=== PATIENT | male | born 1995 | race Two or more races ===

== ENCOUNTER 2020-10-17 15:28 | Emergency (ER) | payer OTHER ==
[~2020-10-17] VITALS: Ht 182.9 cm; Wt 113.4 kg
--- NOTE | 2020-10-17 16:53 | Emergency Room Report ---
History of Present Illness General Chief Complaint: Lower Extremity Injury Source: Patient Present Illness HPI 25-year-old male presents to the emergency department complaining of localized 8 out of 10 severity pain to the lateral aspect of the right foot since yesterday. Patient reports he was playing with his daughter and when he took a step he felt and heard a crack and has been unable to bear weight ever since. Patient reports he has to walk on his heel. Patient reports some mild swelling he reports tenderness palpation. He denies bruising. He denies falling completely to the ground, hitting his head having a loss of consciousness or having any midline neck or back pain. He denies paresthesias. No other aggravating or relieving factors. Allergies: Coded Allergies: No Known Allergies (Unverified , 10/17/20) COVID-19 Screening Contact w/high risk pt: No Experienced COVID-19 symptoms?: No COVID-19 Testing performed MANAGER OF NETWORK: No Patient History Past Medical History: see triage record Past Surgical History: none Pertinent Family History: none Reviewed Nursing Documentation: PMH: Agreed; PSxH: Agreed Nursing Documentation-PMH Past Medical History: No History, Except For Hx COPD: No - Pre-Diabetes Review of Systems All Other Systems: negative except mentioned in HPI Physical Exam Vital Signs Date Time Temp Pulse Resp B/P (MAP) Pulse Ox O2 Delivery O2 Flow Rate FiO2 10/17/20 15:53 98.4 94 18 144/92 (109) 94 Room Air Sp02 EP Interpretation: reviewed, normal General Appearance: no apparent distress, alert, GCS 15, non-toxic Head: normocephalic, atraumatic Eyes: bilateral eye normal inspection, bilateral eye PERRL ENT: hearing grossly normal, normal voice Neck: full range of motion Respiratory: lungs clear, normal breath sounds, speaking full sentences Cardiovascular #1: regular rate, rhythm, no edema, normal capillary refill Cardiovascular #2: 2+ dorsalis pedis (R) Musculoskeletal: back normal, normal range of motion, gait/station normal, tender - TTP to the lateral aspect of the right foot with some mild swelling, no bruising and tenderness upon palpation. No obvious deformities. Neurologic: alert, motor strength/tone normal, oriented x3, sensory intact, responsive, speech normal, grossly normal Psychiatric: judgement/insight normal Skin: no rash, normal color Medical Decision Making PA Attestation Dr. Gary Is my supervising Physician whom patient management has been discussed with. Diagnostic Impression: Primary Impression: Right foot sprain Qualified Codes: S93.601A - Unspecified sprain of right foot, initial encounter ER Course 25-year-old male presents to the emergency department complaining of localized 8 out of 10 severity pain to the lateral aspect of the right foot since yesterday. Patient reports he was playing with his daughter and when he took a step he felt and heard a crack and has been unable to bear weight ever since. Patient reports he has to walk on his heel. Patient reports some mild swelling he reports tenderness palpation. He denies bruising. He denies falling completely to the ground, hitting his head having a loss of consciousness or having any midline neck or back pain. He denies paresthesias. No other aggravating or relieving factors. Ddx considered but are not limited to Fracture, dislocation, contusion, Sprain/Strain/Spasm, Vital signs: are WNL, pt. is afebrile H&PE are most consistent with musculoskeletal injury will perform imaging to r/o fractures/dislocations. ORDERS: - X-ray Right foot 3 views - negative for fx, Dislocation, or significant soft tissue injury, per preliminary read in ED, and signed by CHRISTINE rivas, my supervising physician has reviewed, and agrees with my interpretation. ED INTERVENTIONS: - Pt. declined Aleksandar wrap. --Patient is provided with crutches and instructed on their use. DISCHARGE: At this time pt. is stable for d/c to home. Will provide printed patient care instructions, and any necessary prescriptions. Care plan and follow up instructions have been discussed with the patient prior to discharge. Other X-Ray Diagnostic Results Other X-Ray Diagnostic Results : X-Ray ordered: Right Foot # of Views/Limited Vs Complete: 3 View Indication: Pain EP Interpretation: Yes CHRISTINE Xray: Interpretation reviewed, by supervising MD, and agrees with findings. Interpretation: no dislocation, no soft tissue swelling, no fractures Impression: No acute disease Electronically Signed by: Nata Lee PA-C Last Vital Signs Date Time Temp Pulse Resp B/P (MAP) Pulse Ox O2 Delivery O2 Flow Rate FiO2 10/17/20 15:53 98.4 94 18 144/92 (109) 94 Room Air Status: improved Disposition: HOME, SELF-CARE Condition: Stable Scripts Ibuprofen* (MOTRIN*) 600 Mg Tablet 600 MG ORAL THREE TIMES A DAY, #20 TAB Prov: Nata Lee 10/17/20 Referrals: NOT CHOSEN IPA/,REFERRING (PCP) Geremias [facility]atch [facility]. [facility] Patient Instructions: Foot Sprain Additional Instructions: Take medications as directed. Follow up with a Primary Care Provider in 3-5 days, even if your symptoms have resolved. --Please review list of primary care clinics, if you do not already have a primary care provider Return sooner to ED if new symptoms occur, or current symptoms become worse. - Please note that this Emergency Department Report was dictated using [employer] technology software, occasionally this can lead to erroneous entry secondary to interpretation by the dictation equipment. Nata Lee Oct 17, 2020 16:53
--- NOTE | 2020-10-17 17:00 | Diagnostic Imaging Report ---
EXAM: X-RAY XRAY Foot Complete R CLINICAL HISTORY: Foot pain. COMPARISON: None FINDINGS: Total of 3 views of the right foot were obtained. Alignment is anatomic. There is no fracture, bony lesions or erosions. Joint spaces are unremarkable. Surrounding soft tissue is normal. IMPRESSION: NO FRACTURE.
[2020-10-17] MEDS ORDERED: IBUPROFEN600 M1 ORAL (17:14)
--- NOTE | 2020-10-17 17:25 | NUR ---
crutches provided to pt
[2020-10-17 17:38] VITALS: BP 130/78
== END 2020-10-17 17:30 | disposition home or self-care (01) ==
LOC: EMR 16:20
DX: S93.601A Unspecified sprain of right foot, initial encounter (principal); X50.1XXA Overexertion from prolonged static or awkward postures, initial encounter; Y93.89 Activity, other specified; Y92.9 Unspecified place or not applicable
CPT/HCPCS: 99283